=== PATIENT | female | born 1960 | race Caucasian/White ===

== ENCOUNTER 2021-06-16 13:22 | Emergency (ER) | payer OTHER ==
[~2021-06-16] VITALS: Ht 167.6 cm; Wt 77.3 kg
[2021-06-16] MEDS ORDERED: polyethylene glycol 3350 17gm powd pack PO ONE (15:00)
[2021-06-16] MEDS ORDERED: POLY17PO10 PO (15:04)
--- NOTE | 2021-06-16 15:29 | NUR ---
pt was seen and treated by max ortiz.
[2021-06-16 15:31] VITALS: BP 122/80
== END 2021-06-16 15:32 | disposition home or self-care (01) ==
LOC: ER 13:22
DX: R53.81 Other malaise (principal); Z20.822 Contact with and (suspected) exposure to COVID-19; R53.83 Other fatigue; K59.00 Constipation, unspecified; F17.210 Nicotine dependence, cigarettes, uncomplicated
CPT/HCPCS: 71045; 87635; 99284; C9803